=== PATIENT | male | born 1950 | race Caucasian/White ===

== ENCOUNTER 2017-01-24 08:12 | Day surgery (SDC) | payer MEDICARE ==
[~2017-01-24 08:12] MED LIST: Acetaminophen TAB* 325 MG PO PRN; Buffered Lidocaine 0.9% SYRIN* 5 ML/SYR SYRINGE INTRADERM ONE
[2017-01-24] MEDS ORDERED: Midazolam* 1 MG/ML 2 ML VIAL (2 MG) ONE ×2 (08:34→09:26)
[2017-01-24] MEDS ORDERED: fentaNYL* 50 MCG/ML 2 ML VIAL (100 MCG VIAL) ONE (08:34)
[2017-01-24 10:09] VITALS: BP 110/65
[2017-01-24] MEDS ORDERED: Lidocaine 1% MPF* 2 ML VIAL ONE (16:39)
[2017-01-24] MEDS ORDERED: acetaZOLAMIDE TAB* 250 MG ONE (16:39)
[2017-01-24] MEDS ORDERED: Neomycin/Polymy/Dex OPHTH.OIN* 3.5 GM ONE (16:39)
[2017-01-24] MEDS ORDERED: Cyclopentolate 1% OPTH.SOL* 2 ML BTL ONE (16:39)
[2017-01-24] MEDS ORDERED: Phenylephrine 2.5% OPTH.SOL* 2 ML BTL ONE (16:39)
[2017-01-24] MEDS ORDERED: Tropicamide 1% OPTH.SOL* BTL ONE (16:39)
[2017-01-24] MEDS ORDERED: Flurbiprofen 0.03% OPTH.SOL* 2.5 ML BTL ONE (16:39)
[2017-01-24] MEDS ORDERED: Povidone Iodine 5% OPTH* 30 ML BTL ONE (16:39)
[2017-01-24] MEDS ORDERED: Tetracaine 0.5% OPTH.SOL 4 ML* 1 DROP BTL ONE (16:39)
[2017-01-24] MEDS ORDERED: Buffered Lidocaine 0.9% SYRIN* 5 ML/SYR SYRINGE ONE (16:40)
--- NOTE | 2017-01-24 22:38 | OP ---
DATE OF OPERATION: 01/24/17 - [facility] DATE OF : 52 SURGEON: Aristides Chawla MD ANESTHESIOLOGIST: Misha Cruz MD ANESTHESIA: Monitored anesthesia care. PRE-OP DIAGNOSIS: Cataract of the right eye. POST-OP DIAGNOSIS: Cataract of the right eye. OPERATIVE PROCEDURE: Cataract extraction of the right eye. IMPLANTS: SN6AT6 15 diopter lens to the right eye at 92 degrees. COMPLICATIONS: None. DESCRIPTION OF PROCEDURE: The patient was given phenylephrine 2.5% and cyclopentolate 1% eyedrops to the operative eye in the preoperative area. The patient was brought to the operating room where a time-out was taken to identify the correct patient, site, and side of the surgery. The patient's right eye was prepped and draped in the usual sterile fashion with 5% Betadine. A second time- out was taken to verify the correct patient, site, and side of surgery, and correct lens selection. A lid speculum was placed to the right eye. The [place] marker was used to confirm the corneal markings that were made the preoperative area with the patient sitting in an upright position for orientation of the 92 degrees meridian. A 1-mm paracentesis blade was used to make a clear corneal incision in the superotemporal position. Preservative free 1% lidocaine was injected into the anterior chamber. DisCoVisc was then injected into the anterior chamber. A 2.75 mm keratome blade was used to make a triplanar incision at the inferotemporal position. A cystotome was used to initiate a capsulorrhexis, which was completed with Utrata forceps in a continuous and curvilinear manner. Hydrodissection of the lens was performed with BSS on a cannula. The lens could be spun in the capsular bag. The phacoemulsification handpiece was used with a divide and conquer technique to remove the nucleus in its entirety with 34.35 CDE. The I/A handpiece was then removed with residual cortical lens material. DisCoVisc was injected to inflate the capsular bag. The planned SN6AT6 15 diopter lens was then injected into the capsular bag. The residual DisCoVisc was removed from the eye with the I/A handpiece. The lens was again confirmed to be oriented at the 92- degree meridian. The corneal incisions were hydrated and no leaks occurred at physiologic pressure around 20 mmHg per palpation. The lid speculum was removed and the drapes removed. Maxitrol ointment was then placed on the surface of the operative eye. Adhesive patch and shield was then placed on the operative eye. The patient was taken to the postoperative area in stable condition. [id number]/[facility] #: [id number] MTDD
== END 2017-01-24 10:21 | disposition home or self-care (01) ==
LOC: OREAST 08:12
PROVIDERS: ATTEND Student in an Organized Health Care Education/Training Program
PROC: 08RJ3JZ Replacement of Right Lens with Synthetic Substitute, Percutaneous Approach (ICD-10-PCS; principal; 2017-01-24 09:15)
DX: H26.9 Unspecified cataract (principal); E78.00 Pure hypercholesterolemia, unspecified; Z88.0 Allergy status to penicillin
CPT/HCPCS: A9270-GY; J2250; J3010; V2787

== ENCOUNTER 2017-01-31 11:55 | Day surgery (SDC) | payer MEDICARE ==
[2017-01-31] MEDS ORDERED: fentaNYL* 50 MCG/ML 2 ML VIAL (100 MCG VIAL) ONE (12:58)
[2017-01-31] MEDS ORDERED: Midazolam* 1 MG/ML 2 ML VIAL (2 MG) ONE ×2 (12:58→13:20)
[2017-01-31 14:04] VITALS: BP 116/63
[2017-01-31] MEDS ORDERED: Neomycin/Polymy/Dex OPHTH.OIN* 3.5 GM ONE (14:57)
[2017-01-31] MEDS ORDERED: acetaZOLAMIDE TAB* 250 MG ONE (14:57)
[2017-01-31] MEDS ORDERED: Povidone Iodine 5% OPTH* 30 ML BTL ONE (14:57)
[2017-01-31] MEDS ORDERED: Phenylephrine 2.5% OPTH.SOL* 2 ML BTL ONE (14:57)
[2017-01-31] MEDS ORDERED: Tetracaine 0.5% OPTH.SOL 4 ML* 1 DROP BTL ONE (14:57)
[2017-01-31] MEDS ORDERED: Cyclopentolate 1% OPTH.SOL* 2 ML BTL ONE (14:57)
[2017-01-31] MEDS ORDERED: Lidocaine 1% MPF* 2 ML VIAL ONE (14:57)
[2017-01-31] MEDS ORDERED: Tropicamide 1% OPTH.SOL* BTL ONE (14:57)
[2017-01-31] MEDS ORDERED: Flurbiprofen 0.03% OPTH.SOL* 2.5 ML BTL ONE (14:57)
--- NOTE | 2017-02-01 05:43 | OP ---
DATE OF OPERATION: 01/31/17 - [facility] DATE OF : 52 SURGEON: Aristides Chawla MD ANESTHESIOLOGIST: Dick Davison MD ANESTHESIA: Monitored anesthesia care. PRE-OP DIAGNOSIS: Cataract, left eye. POST-OP DIAGNOSIS: Cataract, left eye. OPERATIVE PROCEDURE: Cataract extraction of the left eye. IMPLANTS: SN60WF 15.5 diopter lens, left eye. COMPLICATIONS: None. DESCRIPTION OF PROCEDURE: The patient was given phenylephrine 2.5% and cyclopentolate 1% eye drops to the operative eye in the preoperative area. The patient was brought to the operating room where a time-out was taken to identify the correct patient, site, and side of surgery. The patient's left eye was prepped and draped in the usual sterile fashion with 5% Betadine. A second time-out was taken to verify the correct patient, site, and side of surgery and correct lens selection. A lid speculum was placed to the left eye. A 1 mm paracentesis blade was used to make a clear corneal incision in the inferotemporal position. Preservative-free 1% lidocaine was injected into the anterior chamber. DisCoVisc was then injected in the anterior chamber. A 2.75 mm keratome blade was used to make a triplanar incision at the superotemporal position. A cystotome initiated a capsulorrhexis, which was completed with Utrata forceps in a continuous and curvilinear manner. Hydrodissection of the lens was performed with BSS on a cannula. The lens could be spun in the capsular bag. The phacoemulsification handpiece was used with a divide-and- conquer technique to remove the nucleus in its entirety with 44.99 CDE. The I/ A handpiece then removed the residual cortical lens material. DisCoVisc was injected to inflate the capsular bag. The planned SN60WF 15.5 diopter lens was injected into the capsular bag. The residual DisCoVisc was removed from the eye with the I/A handpiece. The corneal incisions were hydrated and no leaks occurred at physiologic pressure around 20 mmHg per palpation. The lid speculum was removed and drapes removed. Maxitrol ointment was placed to the surface of the operative eye. An adhesive patch and shield was placed in the operative eye. The patient was taken to the postoperative area in stable condition. [id number]/[facility] #: [id number] MTDD
== END 2017-01-31 14:12 | disposition home or self-care (01) ==
LOC: OREAST 11:55
PROVIDERS: ATTEND Student in an Organized Health Care Education/Training Program
DX: H25.12 Age-related nuclear cataract, left eye (principal)
CPT/HCPCS: A9270-GY; J2250; J3010; V2632